=== PATIENT | female | born 1975 ===

== ENCOUNTER 2020-10-07 16:21 | Outpatient (CLI) | payer SELFPAY | END 2020-10-07 16:22 | disposition EMS.NT | LOC: EMS 16:21 | PROVIDERS: ATTEND Surgery | DX: R41.0 Disorientation, unspecified (principal) ==

== ENCOUNTER 2020-10-07 17:10 | Emergency (ER) | payer SELFPAY ==
[2020-10-07] MEDS ORDERED: OLANZapine 10 MG VIAL IM STA (17:30)
--- NOTE | 2020-10-07 17:48 | ED Physician Documentation ---
PD HPI MHE - Stated complaint Stated Complaint: MHE - Chief complaint Chief Complaint: MHE - History obtained from History obtained from: Police - Additional information Additional information: 45-year-old woman presents accompanied by police. All of the history is from the police as the patient is just talking gibberish. Reportedly is visiting from [place] and has a history of schizophrenia. It sounds like she has been off of her medications. She was disorderly up in [place] and then somehow made her way down to [place] where she was topless and trying to jump in people's cars. Review of Systems Unable to obtain: Uncooperative PD PAST MEDICAL HISTORY - Present Medications Home Medications: Ambulatory Orders Medication Instructions Recorded Confirmed Home Medications Unobtainable 10/07/20 10/07/20 [HOME MEDICATIONS UNOBTAINABLE] - Allergies Allergies/Adverse Reactions: Allergies Allergy/AdvReac Type Severity Reaction Status Date / Time Unable to Assess Allergy Verified 10/07/20 17:57 PD ED PE NORMAL - Vitals Vital signs reviewed: Yes - General General: Other (Is alert and oriented to person but basically just talking slurred speech with flight of ideas, she is somewhat violent and belligerent with frequent swearing.) - HEENT HEENT: PERRL, EOMI - Neck Neck: Supple, no meningeal sign, No bony TTP - Cardiac Cardiac: RRR, No murmur - Respiratory Respiratory: No respiratory distress, Clear bilaterally - Abdomen Abdomen: Non tender - Back Back: No CVA TTP, No spinal TTP - Derm Derm: Normal color, Warm and dry - Extremities Extremities: No edema, No calf tenderness / cord - Neuro Neuro: No motor deficit, No sensory deficit - Psych Psych: Other (Angry word salad flight of ideas speech with aggressive body language) Results - Vitals Vitals: Vital Signs - 24 hr 10/07/20 10/07/20 10/07/20 17:12 17:58 18:23 Temperature 36.9 C Heart Rate 109 H 80 80 Respiratory 16 16 14 Rate Blood Pressure 113/91 H 127/73 117/66 O2 Saturation 100 92 93 Oxygen O2 Source Room air PD MEDICAL DECISION MAKING - ED course ED course: 45-year-old woman with psychosis presents accompanied by [employer] belligerent, yelling, and psychotic. Reportedly has been off of her medications. She did need restraints for time, but calm down quickly after some IM Zyprexa. Likely she will need DCR evaluation for stabilization. Care to overnight ED physician pending medical clearance with labs. Departure - Departure Clinical Impression: Psychosis Qualifiers: Psychosis type: unspecified psychosis type Qualified Code(s): F29 - Unspecified psychosis not due to a substance or known physiological condition Condition: Stable
[2020-10-07 18:55] LABS: MUDS CUTOFF CONCENTRATIONS CUTOFF CONC BELOW:
[2020-10-07 19:00] LABS: BILIRUBIN,URINE NEGATIVE (NEGATIVE); CLARITY,URINE CLEAR (CLEAR); GLUCOSE, URINE (UA) NEGATIVE (NEGATIVE); KETONES,URINE (UA) NEGATIVE (NEGATIVE); LEUKOCYTE ESTERASE, URINE NEGATIVE (NEGATIVE); NITRITE,URINE NEGATIVE (NEGATIVE); OCCULT BLOOD,URINE NEGATIVE (NEGATIVE); PROTEIN,URINE NEGATIVE (NEGATIVE); UROBILINOGEN,URINE 0.2 (NORMAL) E.U./dL (NORMAL)
[2020-10-07 19:06] LABS: BASOPHILS # (AUTO) 0.1 10^3/uL (0.0-0.1); BASOPHILS % (AUTO) 0.9 %; EOSINOPHILS # (AUTO) 0.2 10^3/uL (0.0-0.7); EOSINOPHILS % (AUTO) 2.5 %; HGB - HEMOGLOBIN 11.5 g/dL (12.0-16.0); LYMPHOCYTES # (AUTO) 1.6 10^3/uL (1.5-3.5); LYMPHOCYTES % (AUTO) 20.7 %; MEAN CORPUSCULAR HEMOGLOBIN 26.9 pg (27.0-31.0); MEAN CORPUSCULAR HGB CONC 30.7 g/dL (32.0-36.0); MEAN CORPUSCULAR VOLUME 87.4 fL (81.0-99.0); MEAN PLATELET VOLUME 11.8 fL (7.9-10.8); MONOCYTES # (AUTO) 0.6 10^3/uL (0.0-1.0); NEUTROPHILS % (AUTO) 67.5 %; PLT - PLATELET COUNT 202 10^3/uL (130-450); RED BLOOD COUNT 4.28 10^6/uL (4.20-5.40); RED CELL DISTRIBUTION WIDTH 15.3 % (12.0-15.0); WHITE BLOOD COUNT 7.5 x10^3/uL (4.8-10.8)
[2020-10-07 19:11] LABS: AMPHETAMINE SCREEN,URINE NEGATIVE (NEGATIVE); BENZODIAZEPINES SCREEN, URINE NEGATIVE (NEGATIVE); COCAINE SCREEN URINE NEGATIVE (NEGATIVE); METHADONE SCREEN, URINE NEGATIVE (NEGATIVE); METHAMPHETAMINES SCREEN, URINE NEGATIVE (NEGATIVE); OPIATE SCREEN, URINE NEGATIVE (NEGATIVE); OXYCODONE SCREEN, URINE NEGATIVE (NEGATIVE); PROPOXYPHENE SCREEN, URINE NEGATIVE (NEGATIVE); TRICYCLIC ANTIDEPRESSANT,URINE NEGATIVE (NEGATIVE)
[2020-10-07 19:21] LABS: LITHIUM 0.13 mmol/L
[2020-10-07 19:31] LABS: ACETAMINOPHEN < 10 ug/mL (10-30); ALBUMIN 4.2 g/dL (3.2-5.5); ALBUMIN/GLOBULIN RATIO 1.8 (1.0-2.2); ALKALINE PHOSPHATASE 49 IU/L (42-121); ALT ALANINE AMINOTRANSFERASE 29 IU/L (10-60); AST ASPARTATE AMINOTRANSFERASE 49 IU/L (10-42); BILIRUBIN,TOTAL 0.5 mg/dL (0.2-1.0); BUN - BLOOD UREA NITROGEN 13 mg/dL (6-20); CALCIUM 9.1 mg/dL (8.5-10.3); CARBON DIOXIDE - CO2 26 mmol/L (21-32); CHLORIDE 103 mmol/L (101-111); CREATININE 0.8 mg/dL (0.4-1.0); GLUCOSE 94 mg/dL (70-100); LIPASE 30 U/L (22-51); SALICYLATE < 6.0 mg/dL; SODIUM 138 mmol/L (135-145); TOTAL PROTEIN 6.6 g/dL (6.7-8.2)
[2020-10-07 20:02] LABS: C. PNEUMONIAE- RESP PCR PANEL NOT DETECTED
[2020-10-08] MEDS ORDERED: OLANZapine 10 MG VIAL IM STA ×2 (03:26→14:20)
[2020-10-08] MEDS ORDERED: OLANZapine 10 MG VIAL IM ONE (03:41)
[2020-10-08] MEDS ORDERED: WATER FOR INJECTION,STERILE 10 ML ONE (03:41)
--- NOTE | 2020-10-08 03:50 | ED Physician Documentation ---
ED Addendum - Addendum Addendum: 10/08/20 03:27 45-year-old female with a history of schizophrenia presents to the emergency department today [id number] and appearing acutely psychotic. She was detained by police earlier today when she attempted to get in someone's car down in [place] without her top 1. The patient's mother has reported that she has not taken her medications for several days. The patient is initially evaluated in the emergency department by Dr. Magallon and medically cleared for psychiatric evaluation and he requested we call the DCR as he believed the patient would require hospitalization for stabilization. The patient was administered Zyprexa 10 mg IM here in the emergency department and she slept for several hours. On awakening we asked the patient to talk to the DCR and she flatly refused unable to cooperate and her behavior again escalated (urinating on the floor, whipping herself with the O2 sensor cord, yelling non-sense) requiring a second dose of Zyprexa. The DCR has detained the patient and arrangements were made for transfer of the patient to [facility]. 10/08/20 07:02 10/08/20 07:21
[2020-10-08 05:57] LABS: HCG UR QUAL NEGATIVE
[2020-10-08 14:08] VITALS: BP 142/84
== END 2020-10-08 14:30 ==
LOC: ED 17:10
DX: F23 Brief psychotic disorder (principal); Z91.14 Patient's other noncompliance with medication regimen; Z78.1 Physical restraint status; Z20.828 Contact with and (suspected) exposure to other viral communicable diseases
CPT/HCPCS: 0202U; 36415; 80178; 80320; 80329; 81003; 81025; 83690; 96372; 99285; 80053; 80306; 80307; 81001; 84443; 85025; 87086